=== PATIENT | male | born 1950 | race Caucasian/White ===

== ENCOUNTER 2023-09-04 10:04 | Inpatient (IN) ==
[2023-09-04 10:56] LABS: ABS Basophils 0.1 10^3/uL (0.0-0.1); ABS Eosinophils 0.1 10^3/uL (0.0-0.5); ABS Lymphocytes 1.3 10^3/uL (1.0-4.8); ABS Monocytes 0.7 10^3/uL (0.0-1.1); ABS Neutrophils 6.8 10^3/uL (1.5-7.6); Eosinophil % 0.6 %; Hemoglobin 13.6 g/dL (13.2-16.3); Mean Corpuscular Hemoglobin 31.2 pg (27-33); Mean Corpuscular Hgb Conc 33.9 g/dL (31-36); Mean Corpuscular Volume 92.3 fL (80-97); Mean Platelet Volume 8.5 fL (7.5-11.2); Platelet Count 345 10^3/uL (150-450); Red Blood Count 4.34 10^6/uL (4.06-5.63); Red Cell Distribution Width 13.5 % (12-17); White Blood Count 8.9 10^3/uL (3.6-10.2)
[2023-09-04 11:08] LABS: Activated Partial Thrombo Time 34.6 seconds (26.0-38.0); INR 1.09 (0.83-1.13)
[2023-09-04 12:05] LABS: ALT 18 U/L (7-52); Albumin 4.4 g/dL (3.2-5.2); Albumin/Globulin Ratio 1.7 (1-3); Alkaline Phosphatase 60 U/L (35-149); Anion Gap 7 mmol/L (2-16); Blood Urea Nitrogen 28 mg/dL (6-24); CO2 Carbon Dioxide 29 mmol/L (22-32); Chloride 104 mmol/L (101-111); Cholesterol 106 mg/dL; Creatinine, Serum 1.13 mg/dL (0.67-1.17); Globulin 2.6 g/dL (2-4); Glucose 90 mg/dL (70-100); LDL Cholesterol 42 mg/dL; Sodium 140 mmol/L (135-145); Triglycerides 79 mg/dL; eGFR CKD-EPI 69.5 (>60)
[2023-09-04 12:35] LABS: Urine Appearance Clear; Urine Bilirubin Negative (Negative); Urine Blood Trace (Negative); Urine Color Yellow; Urine Glucose Negative (Negative); Urine Ketones 2+ (Negative); Urine Nitrite Negative (Negative); Urine Protein Trace (Negative); Urine Specific Gravity 1.024 (1.002-1.030); Urine Urobilinogen Negative (Negative); Urine pH 5.5 (5.0-8.0)
[2023-09-04] MEDS: Iohexol 350 (CONTRAST) 500 ML MDV IV ONE (12:35)
[2023-09-04] MEDS: NS 0.9% 1000 ml BAG 1,000 ML IV ONE (16:34)
[2023-09-04 18:05] VITALS: BP 167/81
== END 2023-09-04 18:09 | disposition short-term general hospital (02) | DRG 65 ==
LOC: ED 10:04 → EDHOLD 13:48 → MEDTELE 14:32
PROVIDERS: ADMIT Student in an Organized Health Care Education/Training Program; ATTEND Student in an Organized Health Care Education/Training Program